=== PATIENT | male | born 1975 | race African-American/Black ===

== ENCOUNTER 2017-07-13 16:28 | Emergency (ER) | payer SELFPAY ==
[~2017-07-13] VITALS: Ht 162.6 cm; Wt 56.0 kg
[2017-07-13] MEDS ORDERED: FLUORESCEIN SODIUM 1MG/STRIP OP ONE (18:45)
[2017-07-13] MEDS ORDERED: TETRACAINE 0.5% OPHTH DROPS 4ML RIGHTEYE ONE (18:45)
[2017-07-13] MEDS ORDERED: ACETAMINOPHEN 500MG TABLET PO ONE (20:00)
[2017-07-13 20:45] VITALS: BP 128/84
== END 2017-07-13 20:46 | disposition home or self-care (01) ==
LOC: ER 17:08
DX: S05.92XA Unspecified injury of left eye and orbit, initial encounter (principal); F17.200 Nicotine dependence, unspecified, uncomplicated; X58.XXXA Exposure to other specified factors, initial encounter; Y93.89 Activity, other specified; Y92.89 Other specified places as the place of occurrence of the external cause; Y99.8 Other external cause status
CPT/HCPCS: 99283